=== PATIENT | female | born 1955 | race Caucasian/White ===

== ENCOUNTER 2016-06-30 19:59 | Emergency (ER) | payer OTHER ==
[2016-06-30 20:11] VITALS: BP 163/94; PULSE 80; TEMP 98.3; BMI 27.2
--- NOTE | 2016-06-30 20:20 | PDOC ---
History of Present Illness - General History Source: Patient, Old Records Exam Limitations: No Limitations - History of Present Illness Initial Comments: 06/30/16 20:50 The patient is a 60 year old female, with a significant past medical history of hypertension, who presents to the emergency department with abrasions to the left wrist and abrasions to the left elbow s/p a mechanical trip and fall 3 days ago. The patient states that she landed on her left side, sustaining abrasions to the left wrist and left elbow when she fell. She states that she did not hit her head, denies any LOC. She reports that she washed and cleaned the abrasions, applied bacitracin and covered the abrasions with band aids. The patient presents to the ED today out of concern that the abrasions are becoming infected. The patient denies fever or chills. The patient denies any extremity weakness/numbness/tingling. PAST MEDICAL HISTORY: See HPI. PAST SURGICAL HISTORY: No significant history. FAMILY HISTORY: No pertinent history. SOCIAL HISTORY: Patient lives with family and is employed. MEDICATIONS: Reviewed. ALLERGIES: As per nursing notes. Adult ROS: General: No fevers or chills, no weakness, no weight loss. HEENT: No change in vision. No sore throat. No ear pain. CardioVascular: No chest pain or shortness of breath. Respiratory: No cough, or wheezing. Gastrointestinal: No nausea, vomiting, diarrhea or constipation, no rectal bleeding. Genitourinary: No dysuria, hematuria, or frequency. Musculoskeletal: No joint or muscle pain or swelling. No neck pain or back pain. Neurologic: No headache, vertigo, dizziness or loss of consciousness. Psychiatric: No depression. Skin: +Abrasions to the left wrist, abrasions to the left elbow. No rashes or easy bruising. Endocrine: No increased thirst or abnormal weight change. Allergic: No skin or latex allergy. All other systems reviewed and normal. Basic Physical Exam: GENERAL: The patient is awake, alert, and fully oriented, in no acute distress. HEAD: Normal with no signs of trauma. EYES: Pupils equal, round and reactive to light, extraocular movements intact, sclera anicteric, conjunctiva clear. EXTREMITIES: There is an abrasion over the left elbow with mild erythema and swelling. No pus or purulent discharge from the abrasion. There is tenderness to palpation of the soft tissue without no bony tenderness. There is some mild edema distally but no erythema or tenderness. Dorsum of the right hand, there is some mild ecchymosis which appears to be approximately 2 days old. There is no bony tenderness. Normal range of motion. NEUROLOGICAL: Normal speech, normal gait. PSYCH: Normal mood, normal affect. SKIN: Warm, dry, normal turgor, no rashes or lesions noted. 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 In addition to that she also injured her left elbow. Patient comes in for reevaluation of a probable infection of her left elbow. 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 Patient had no complaints of body aches, fatigue or fevers or systemic symptoms of an infection. A portion of this note was documented by scribe services under my direction. I have reviewed the details of the note, within reason, and agree with the documentation. The case summary and management plan written by me. <Shalonda Finley I - Last Filed: 06/30/16 21:53> - General Chief Complaint: Injury Stated Complaint: FELL INJURY TO LEFT WRIST/ELBOW Time Seen by Provider: 06/30/16 20:19 Past History <Verna Guerrero - Last Filed: 06/30/16 20:49> - Past Medical History HTN: Yes Other medical history: IBS - Immunization History Immunization Up to Date: Yes - Psycho/Social/Smoking Cessation Hx Anxiety: No Suicidal Ideation: No Smoking Status: Yes Smoking History: Current every day smoker Have you smoked in the past 12 months: Yes Number of Cigarettes Smoked Daily: 10 Cigars Per Day: 0 Information on smoking cessation initiated: Yes 'Breaking Loose' booklet given: 02/14/14 Hx Alcohol Use: Yes (SOCIAL) Drug/Substance Use Hx: No Substance Use Type: None <Shalonda Finley I - Last Filed: 06/30/16 21:53> - Past Medical History Allergies/Adverse Reactions: Allergies Allergy/AdvReac Type Severity Reaction Status Date / Time Penicillins Allergy Verified 06/30/15 14:00 Home Medications: Ambulatory Orders Linaclotide [Linzess] 290 mcg PO DAILY 06/30/16 Sulfamethoxazole/Trimethoprim [Bactrim DS -] 1 tab PO BID #14 tablet 06/30/16 *Physical Exam - Vital Signs Last Vital Signs Temp Pulse Resp BP Pulse Ox 98.3 F 80 16 163/94 100 06/30/16 20:00 06/30/16 20:00 06/30/16 20:00 06/30/16 20:00 06/30/16 20:00 <Verna Guerrero - Last Filed: 06/30/16 20:49> - Vital Signs Last Vital Signs Temp Pulse Resp BP Pulse Ox 98.3 F 80 16 163/94 100 06/30/16 20:00 06/30/16 20:00 06/30/16 20:00 06/30/16 20:00 06/30/16 20:00 <Shalonda Finley I - Last Filed: 06/30/16 21:53> *DC/Admit/Observation/Transfer - Attestations Scribe Attestion: 06/30/16 20:23 Documentation prepared by Verna Guerrero, acting as nurses medical assistants phlebotomists for Shalonda Finley MD. <Verna Guerrero - Last Filed: 06/30/16 20:49> <Shalonda Finley I - Last Filed: 06/30/16 21:53> Diagnosis at time of Disposition: Cellulitis of left elbow Abrasion of left elbow Qualifiers: Encounter type: initial encounter Qualified Code(s): S50.312A - Abrasion of left elbow, initial encounter - Discharge Dispostion Disposition: HOME Condition at time of disposition: Stable - Prescriptions Prescriptions: Sulfamethoxazole/Trimethoprim [Bactrim DS -] 1 tab PO BID #14 tablet - Referrals Referrals: Ezequiel Escudero MD [Primary Care Provider] - - Patient Instructions Additional Instructions: For the infection take Bactrim one tablet twice a day for 7 days/ Apply some bacitracin to the elbow and a Band-Aid for the next 2-3 days/ Return to the emergency department immediately with ANY new, persistent or worsening symptoms. Continue any medications as previously prescribed by your physician. You should follow up with your primary doctor as soon as possible regarding today's emergency department visit. . Please make sure your doctor reviews the results of your emergency evaluation. Thank you for coming to the Emergency Department today for your care. It was a pleasure to see you today. Please note that your evaluation is INCOMPLETE until you follow-up with your doctor.
[2016-06-30] MEDS ORDERED: SULFAMETHOXAZOLE/TRIMETHOPRIM 800MG/160MG D.S. TABLET ONE (20:38)
[2016-06-30] MEDS ORDERED: SULFAMETHOXAZOLE/TRIMETHOPRIM 800MG/160MG D.S. TABLET PO ONE (20:41)
[2016-06-30] MEDS ORDERED: DIPHTH,PERTUSS(ACELL),TET 0.5 ML DISP.SYRIN IM ONE (20:42)
== END 2016-06-30 20:46 | disposition home or self-care (01) ==
LOC: FER 19:59
PROC: 3E0234Z Introduction of Serum, Toxoid and Vaccine into Muscle, Percutaneous Approach (ICD-10-PCS; principal; 2016-06-30)
DX: L03.114 Cellulitis of left upper limb (principal); S50.312A Abrasion of left elbow, initial encounter; W18.30XA Fall on same level, unspecified, initial encounter; Y93.9 Activity, unspecified; Y92.9 Unspecified place or not applicable
CPT/HCPCS: 90715; 99281-25

== ENCOUNTER 2016-08-10 10:04 | Emergency (ER) | payer OTHER ==
[2016-08-10 10:14] VITALS: BP 123/69; PULSE 73; TEMP 99.6; BMI 27.1
--- NOTE | 2016-08-10 11:07 | PDOC ---
History of Present Illness - General Chief Complaint: Respiratory Stated Complaint: HEADACHE, SORE THROAT, NASAL CONGESTION, COUGH Time Seen by Provider: 08/10/16 10:54 - History of Present Illness Initial Comments: 08/10/16 11:05 60-year-old female, states that since Thursday she has had headache, sinus pressure, chills, nonproductive cough, low-grade ear, aches, and feeling very tired, associated with a sore throat but no earache She states that she did have the flu shot this year She states that she sometimes gets bad sinus infections, and it feels like she has a sinus infection starting She denies any nausea vomiting or diarrhea She denies any other complaints at this time, and the remainder of the review of systems is negative Past History - Past Medical History Allergies/Adverse Reactions: Allergies Allergy/AdvReac Type Severity Reaction Status Date / Time Penicillins Allergy Verified 08/10/16 10:08 Home Medications: Ambulatory Orders Linaclotide [Linzess] 290 mcg PO DAILY 06/30/16 Amox-Tr/K Cl [Augmentin - 500Mg Tablet] 1 tab PO TID #21 tab 08/10/16 GI Disorders: Yes (IBS W/ CONSTIPATION) HTN: Yes - Immunization History Immunization Up to Date: Yes - Psycho/Social/Smoking Cessation Hx Anxiety: No Suicidal Ideation: No Smoking Status: Yes Smoking History: Unknown if ever smoked Have you smoked in the past 12 months: Yes Number of Cigarettes Smoked Daily: 10 Cigars Per Day: 0 'Breaking Loose' booklet given: 02/14/14 Hx Alcohol Use: Yes (SOCIAL) Drug/Substance Use Hx: No Substance Use Type: None *Physical Exam - Vital Signs Last Vital Signs Temp Pulse Resp BP Pulse Ox 99.6 F 73 18 123/69 96 08/10/16 10:05 08/10/16 10:05 08/10/16 10:05 08/10/16 10:05 08/10/16 10:05 - Physical Exam Comments: 08/10/16 11:06 Physical exam Last Vital Signs Temp Pulse Resp BP Pulse Ox 99.6 F 73 18 123/69 96 08/10/16 10:05 08/10/16 10:05 08/10/16 10:05 08/10/16 10:05 08/10/16 10:05 GENERAL: The patient is awake, alert, and fully oriented, and in no apparent distress. HEAD: Normal with no signs of trauma. EYES: sclera anicteric, conjunctiva are normal. ENT: TMs normal, nares patent, oropharynx is erythematous without exudates Moist mucous membranes. There is diffuse sinus tenderness to palpation NECK: Normal range of motion, supple without lymphadenopathy, JVD, or masses. LUNGS: Breath sounds equal, clear to auscultation bilaterally. No wheezes, and no crackles. HEART: Regular rate and rhythm, normal S1 and S2 without murmur, rub or gallop. ABDOMEN: Soft, nontender, normoactive bowel sounds. No guarding, no rebound. No masses appreciated. NEUROLOGICAL: Cranial nerves II through XII grossly intact. Normal speech, normal gait. Grossly nonfocal neurologic exam PSYCH: Normal mood, normal affect. SKIN: Warm, Dry, Medical Decision Making - Medical Decision Making 08/10/16 11:07 URI with sinusitis Will check rapid strep and flu swab Patient states that Augmentin usually works well when she gets sinusitis 08/10/16 11:52 Will treat with Augmentin for sinusitis Rapid strep negative 08/10/16 11:57 Patient states that she was told as a child 60 years ago that she might of been ALLERGIC to penicillin, but states she has taken Augmentin without any difficulties in the past for sinusitis *DC/Admit/Observation/Transfer Diagnosis at time of Disposition: Acute sinusitis, Upper respiratory infection - Discharge Dispostion Disposition: HOME Condition at time of disposition: Stable - Patient Instructions Printed Discharge Instructions: DI for Sinusitis, Sinusitis, DI for Viral Upper Respiratory Infection -- Adult Additional Instructions: Augmentin-one pill 3 times a day Any [id number] cough or cold preparations that you prefer Increase fluid intake Please take a probiotic daily when you're taking this antibiotic Followup with your primary care physician in 24-48 hours Return immediately if you worsen in any way Take your medications as directed - Post Discharge Activity Work/School Note: Back to Work
[2016-08-10] MEDS ORDERED: AMOX TR/POT CLAV 500MG/125MG TABLETS (FP) PO ONE (11:57)
[2016-08-10] MEDS ORDERED: AMOX TR/POT CLAV 500MG/125MG TABLETS (FP) ONE (12:05)
== END 2016-08-10 12:10 | disposition home or self-care (01) ==
LOC: FER 10:04
DX: J01.90 Acute sinusitis, unspecified (principal); J06.9 Acute upper respiratory infection, unspecified; I10 Essential (primary) hypertension; K58.1 Irritable bowel syndrome with constipation
CPT/HCPCS: 87070; 87430; 87804; 99283-25

== ENCOUNTER 2016-11-07 07:16 | Emergency (ER) | payer OTHER ==
--- NOTE | 2016-11-07 07:31 | PDOC ---
History of Present Illness - General Chief Complaint: Cold Symptoms Stated Complaint: cough Time Seen by Provider: 11/07/16 07:29 - History of Present Illness Initial Comments: 11/07/16 07:31 60yo F hx smoking presents with 3 days of productive cough, subjective fevers and chills, runny nose and frontal headache. Pt reports she initially had a sore throat that resolved yesterday. She then began to experience periods of feeling hot and then cold as well as a gradual onset throbbing headache in her forehead. She relates this headache to the last time she was diagnosed with sinusitus. She was sent home from work yesterday and states since then, she slept 23 hours yesterday which is very unlike her. Reports 6 co-workers who are sick with similar symptoms. She tried mucinex for the cough which helped. Denies ear pain, stiff neck, CP, SOB, abd pain, N/V/D, LE edema, dysuria, rashes. Past History - Travel Traveled outside of the country in the last 30 days: No Close contact w/someone who was outside of country & ill: No - Past Medical History Allergies/Adverse Reactions: Allergies Allergy/AdvReac Type Severity Reaction Status Date / Time Penicillins Allergy Verified 08/10/16 10:08 Home Medications: Ambulatory Orders Linaclotide [Linzess] 290 mcg PO DAILY 06/30/16 Amox-Tr/K Cl [Augmentin - 500Mg Tablet] 1 tab PO TID #21 tab 08/10/16 Azithromycin 500 mg PO DAILY #2 tablet 11/07/16 GI Disorders: Yes (IBS W/ CONSTIPATION) HTN: Yes - Immunization History Immunization Up to Date: Yes - Psycho/Social/Smoking Cessation Hx Anxiety: No Suicidal Ideation: No Smoking Status: Yes Smoking History: Current every day smoker Have you smoked in the past 12 months: Yes Number of Cigarettes Smoked Daily: 10 Cigars Per Day: 0 'Breaking Loose' booklet given: 02/14/14 Hx Alcohol Use: Yes (SOCIAL) Drug/Substance Use Hx: No Substance Use Type: None Review of Systems - Review of Systems Able to Perform ROS?: Yes Is the patient limited Slovak proficient: No Constitutional: Yes: Chills, Fever. No: Symptoms Reported, See HPI, Diaphoresis , Loss of Appetite, Malaise, Night Sweats, Weakness, Weight Stable, Unintentional Wgt. Loss, Unexplained wgt Loss, Other HEENTM: Yes: Nose Congestion, Throat Pain. No: Symptoms Reported, See HPI, Eye Pain, Blurred Vision, Tearing, Recent change in vision, Double Vision, Cataracts , Ear Pain, Ocular Prothesis, Ear Discharge, Nose Pain, Tinnitus, Nose Bleeding , Hearing Loss, Throat Swelling, Mouth Pain, Dental Problems, Difficulty Swallowing, Mouth Swelling, Other Respiratory: Yes: Cough, Productive cough. No: Symptoms reported, See HPI, Orthopnea, Shortness of Breath, SOB with Exertion, SOB at Rest, Stridor, Wheezing, Hemoptysis, Other Cardiac (ROS): No: Symptoms Reported, See HPI, Chest Pain, Edema, Irregular Heart Rate, Lightheadedness, Palpitations, Syncope, Chest Tightness, Other ABD/GI: No: Symptoms Reported, See HPI, Abdominal Distended, Abd. Pain w/ defecation, Blood Streaked Bowels, Constipated, Diarrhea, Difficulty Swallowing , Nausea, Poor Appetite, Poor Fluid Intake, Rectal Bleeding, Vomiting, Indigestion, Abdominal cramping, Tarry Stools, Other : No: Symptoms Reported, See HPI, Burning, Dysuria, Discharge, Frequency, Flank Pain, Hematuria, Incontinence, Pain, Urgency, Testicular Mass, Testicular Swelling, Lesions, Testicular Pain, Other Musculoskeletal: No: Symptoms Reported, See HPI, Back Pain, Gout, Joint Pain, Joint Swelling, Muscle Pain, Muscle Weakness, Neck Pain, Joint Stiffness, Other Integumentary: No: Symptoms Reported, See HPI, Bruising, Change in Color, Change in Hair/Nails, Dryness, Erythema, Flushing, Lesions, Lumps, Pallor, Pruritus, Rash, Sweating, Other Neurological: No: Symptoms reported, See HPI, Headache, Numbness, Paresthesia, Pre-Existing Deficit, Seizure, Tingling, Tremors, Weakness, Unsteady Gait, Ataxia, Dizziness, Other Psychiatric: No: Anxiety, Depression, Frequent Crying, Stressors, Sleep Pattern Change, Emotional Problems, Mood Swings, Change in Appetite, Other Endocrine: No: Symptoms Reported, See HPI, Excessive Sweating, Flushing, Intolerance to Cold, Intolerance to Heat, Increased Hunger, Increased Thirst, Increased Urine, Unexplained Weight Gain, Unexplained Weight Loss, Change in Weight, Other Hematologic/Lymphatic: No: Symptoms Reported, See HPI, Anemia, Blood Clots, Easy Bleeding, Easy Bruising, Bleeding Diathesis, Lymph Node Abnormalities, Swollen Glands, Other *Physical Exam - Physical Exam Comments: 11/07/16 07:50 GENERAL: Awake, alert, and fully oriented, in no acute distress HEAD: No signs of trauma, +ttp to frontal and maxillary sinuses EYES: PERRLA, EOMI, sclera anicteric, conjunctiva clear ENT: Auricles normal inspection, hearing grossly normal, nares patent, oropharynx with mild erythema but no exudates. Moist mucosa NECK: Normal ROM, supple, no lymphadenopathy, JVD, or masses LUNGS: Breath sounds equal, clear to auscultation bilaterally. No wheezes, fine crackles at lung base HEART: Regular rate and rhythm, normal S1 and S2, no murmurs, rubs or gallops ABDOMEN: Soft, nontender, normoactive bowel sounds. No guarding, no rebound. No masses EXTREMITIES: Normal range of motion, no edema. No clubbing or cyanosis. No cords, erythema, or tenderness NEUROLOGICAL: Normal speech, cranial nerves intact, negative pronator drift, 5/ 5 strength in all 4 extremities, normal sensation to light touch in all 4 extremities, normal cerebellar exam, normal gait, normal reflexes and tone SKIN: Warm, Dry, normal turgor, no rashes or lesions noted. ED Treatment Course - LABORATORY CBC & Chemistry Diagram: 11/07/16 07:58 11/07/16 07:58 Medical Decision Making - Medical Decision Making 11/07/16 07:52 60-year-old female with a history of smoking who presents with productive cough , fevers, chills, runny nose, and frontal headache. Exam with tenderness to palpation over the frontal and maxillary sinuses as well as fine crackles auscultated at the right lung base. Likely viral syndrome with sinusitis given crackles auscultated on exam will check a chest x-ray to rule out pneumonia. -cbc, cmp -CXR -NS bolus -tylenol -azithromycin -reassess 11/07/16 08:27 Chest x-ray is negative with no acute pathology and no pneumonia. Labs are still pending. 11/07/16 08:43 CBC unremarkable with no white count. CMP pending. If within normal limits will discharge patient to follow-up with primary doctor within 2-3 days. 11/07/16 09:11 CMP unremarkable. Patient feels better after Tylenol and fluids. Will follow up with her primary care doctor within 2-3 days. Patient provided a work note so that she can stay home and get some rest. I discussed the physical exam findings, ancillary test results and final diagnoses with the patient. I answered all of the patient's questions. The patient was satisfied with the care received and felt comfortable with the discharge plan and treatment plan. The patient will call their primary care physician within 24 hours to arrange follow-up and will return to the Emergency Department with any new, persistent or worsening symptoms. *DC/Admit/Observation/Transfer Diagnosis at time of Disposition: Acute sinusitis Qualifiers: Sinusitis location: unspecified location Recurrence: not specified as recurrent Qualified Code(s): J01.90 - Acute sinusitis, unspecified - Discharge Dispostion Disposition: HOME Condition at time of disposition: Stable Admit: No - Prescriptions Prescriptions: Azithromycin 500 mg PO DAILY #2 tablet - Patient Instructions Printed Discharge Instructions: DI for Viral Upper Respiratory Infection -- Adult Additional Instructions: Follow-up with your primary care doctor within 2-3 days. Return to the emergency department immediately for any new or concerning symptoms or if your symptoms get worse - Post Discharge Activity Work/School Note: Back to Work - Attestations Physician Attestion: 11/07/16 08:41 I, Dr. Barrington Murillo MD, attest that this document has been prepared under my direction and personally reviewed by me in its entirety. I further attest, that it accurately reflects all work, treatment, procedures and medical decision -making performed by me.
[2016-11-07] MEDS ORDERED: SODIUM CHLORIDE 0.9% 500 ML INFUS.BAG IV ONE (07:36)
[2016-11-07] MEDS ORDERED: ACETAMINOPHEN 500 MG TABLET (FP) PO ONE (07:36)
[2016-11-07] MEDS ORDERED: AZITHROMYCIN 250 MG TABLET PO ONE (07:37)
[2016-11-07 07:39] VITALS: BP 113/88; PULSE 93; TEMP 98.3; BMI 27.8
[2016-11-07] MEDS ORDERED: AZITHROMYCIN 250 MG TABLET ONE (07:40)
[2016-11-07] MEDS ORDERED: ACETAMINOPHEN 500 MG TABLET (FP) ONE (07:40)
[2016-11-07 08:26] LABS: BASOPHIL 0.8 % (0-2.0); EOSINOPHIL 0.8 % (0-4.5); MCHC 33.5 g/dl (32.0-36.0); MEAN CELL VOLUME 92.6 fl (80-96); MEAN PLT VOLUME 7.6 fl (7.5-11.1); NEUTROPHILS 70.8 % (42.8-82.8); PLATELET COUNT 335 K/MM3 (134-434); RDW 13.6 % (11.6-15.6); WHITE BLOOD COUNT 8.8 K/mm3 (4.0-10.8)
[2016-11-07 08:43] LABS: ALBUMIN 4.1 g/dl (3.5-5.0); ALK PHOS 63 U/L (32-92); ANION GAP 7 (8-16); BILIRUBIN,TOTAL 0.7 mg/dl (0.2-1.0); CALCIUM 9.3 mg/dl (8.4-10.2); CO2 27 mmol/L (22-28); CREATININE 0.7 mg/dl (0.6-1.3); GLUCOSE,RANDOM 111 mg/dl (74-106); SGOT/AST 18 U/L (10-42); SGPT/ALT 16 U/L (10-40); TOT PROT 7.3 g/dl (6.4-8.3)
== END 2016-11-07 09:18 | disposition home or self-care (01) ==
LOC: FER 07:16
PROC: 3E0337Z Introduction of Electrolytic and Water Balance Substance into Peripheral Vein, Percutaneous Approach (ICD-10-PCS; principal; 2016-11-07)
DX: J01.90 Acute sinusitis, unspecified (principal)
CPT/HCPCS: 36415; 71020-TC; 80053; 85025; 99282-25

== ENCOUNTER 2016-12-17 15:23 | Emergency (ER) | payer OTHER ==
[2016-12-17 15:44] VITALS: BP 151/89; PULSE 71; TEMP 98.6; BMI 28.3
--- NOTE | 2016-12-17 15:55 | PDOC ---
History of Present Illness - General History Source: Patient Exam Limitations: No Limitations - History of Present Illness Initial Comments: 12/17/16 16:00 The patient is a 61 year old female, with no significant past medical history, who presents to the emergency department s/p fall. Patient was walking in the parking lot when she fell left arm first. She complains of left forearm swelling and pain. She states she had a prior fall where she fell on her left forearm and suffered an abrasion and infection, but no fracture. Patient is right hand dominant. Patient denies head trauma, back pain, neck pain. Patient denies headache, fever, chills, nausea, vomiting, diarrhea. Patient is up to date with her tetanus shot. <Herb Torre - Last Filed: 12/17/16 16:00> <Giorgi Das - Last Filed: 12/17/16 16:52> - General Chief Complaint: Pain, Acute Stated Complaint: left arm pain Time Seen by Provider: 12/17/16 15:44 Past History <Herb Torre - Last Filed: 12/17/16 16:00> - Past Medical History GI Disorders: Yes (IBS W/ CONSTIPATION) HTN: Yes - Immunization History Immunization Up to Date: Yes - Suicide/Smoking/Psychosocial Hx Smoking Status: Yes Smoking History: Current every day smoker Have you smoked in the past 12 months: Yes Number of Cigarettes Smoked Daily: 10 Cigars Per Day: 0 Information on smoking cessation initiated: Yes 'Breaking Loose' booklet given: 12/17/16 Hx Alcohol Use: No Drug/Substance Use Hx: No Substance Use Type: None <Giorgi Das - Last Filed: 12/17/16 16:52> - Past Medical History Allergies/Adverse Reactions: Allergies Allergy/AdvReac Type Severity Reaction Status Date / Time Penicillins Allergy Verified 12/17/16 15:23 Home Medications: Ambulatory Orders Linaclotide [Linzess] 290 mcg PO DAILY 06/30/16 Review of Systems - Review of Systems Able to Perform ROS?: Yes Comments:: 12/17/16 16:00 GENERAL/CONSTITUTIONAL: No fever or chills. No weakness. HEAD, EYES, EARS, NOSE AND THROAT: No change in vision. No ear pain or discharge. No sore throat. CARDIOVASCULAR: No chest pain or shortness of breath. RESPIRATORY: No cough, wheezing, or hemoptysis. GASTROINTESTINAL: No nausea, vomiting, diarrhea or constipation. GENITOURINARY: No dysuria, frequency, or change in urination. MUSCULOSKELETAL: + left forearm pain and swelling. No neck or back pain. SKIN: No rash NEUROLOGIC: No headache, vertigo, loss of consciousness, or change in strength/ sensation. ENDOCRINE: No increased thirst. No abnormal weight change. HEMATOLOGIC/LYMPHATIC: No anemia, easy bleeding, or history of blood clots. ALLERGIC/IMMUNOLOGIC: No hives or skin allergy. <Herb Torre - Last Filed: 12/17/16 16:00> *Physical Exam - Vital Signs Last Vital Signs Temp Pulse Resp BP Pulse Ox 98.6 F 71 16 151/89 100 12/17/16 15:23 12/17/16 15:23 12/17/16 15:23 12/17/16 15:23 12/17/16 15:23 - Physical Exam Comments: 12/17/16 16:00 GENERAL: Awake, alert, and fully oriented, in no acute distress HEAD: No signs of trauma EYES: PERRLA, EOMI, sclera anicteric, conjunctiva clear ENT: Auricles normal inspection, hearing grossly normal, nares patent, oropharynx clear without exudates. Moist mucosa NECK: Normal ROM, supple, no lymphadenopathy, JVD, or masses LUNGS: Breath sounds equal, clear to auscultation bilaterally. No wheezes, and no crackles HEART: Regular rate and rhythm, normal S1 and S2, no murmurs, rubs or gallops ABDOMEN: Soft, nontender, normoactive bowel sounds. No guarding, no rebound. No masses EXTREMITIES: Left wrist: no deformity. Mild diffuse swelling. Point tenderness over the distal radius. No snuff box tenderness. Pulses full. No distal sensory deficits .Good capillary refill in all 5 digits. Left elbow: diffuse swelling. Small effusion. Point tenderness over the radial head. Limited ROM with a lack of approximately 15 degrees of extension. No visible or palpable deformity other than the swelling. Full ROM of the shoulder without pain. No other injuries including to the head neck chest abdomen elbow spine or other extremities. NEUROLOGICAL: Cranial nerves II through XII grossly intact. Normal speech, normal gait SKIN: Warm, Dry, normal turgor, no rashes or lesions noted. <Herb Torre - Last Filed: 12/17/16 16:00> - Vital Signs Last Vital Signs Temp Pulse Resp BP Pulse Ox 98.6 F 71 16 151/89 100 12/17/16 15:23 12/17/16 15:23 12/17/16 15:23 12/17/16 15:23 12/17/16 15:23 <Giorgi Das - Last Filed: 12/17/16 16:52> *DC/Admit/Observation/Transfer - Attestations Scribe Attestion: 12/17/16 16:00 Documentation prepared by Herb Torre, acting as medical equipment sales for Giorgi Delaney MD. <Herb Torre - Last Filed: 12/17/16 16:00> - Discharge Dispostion Admit: No <Giorgi Das - Last Filed: 12/17/16 16:52> Diagnosis at time of Disposition: Fracture of head of radius Qualifiers: Encounter type: initial encounter Fracture type: closed Fracture alignment: nondisplaced Laterality: left Qualified Code(s): S52.125A - Nondisplaced fracture of head of left radius, initial encounter for closed fracture; S52.125A - Nondisplaced fracture of head of left radius, initial encounter for closed fracture - Discharge Dispostion Disposition: HOME Condition at time of disposition: Improved - Referrals Referrals: River Vanegas MD [Staff Physician] - 1 week - Patient Instructions Printed Discharge Instructions: DI for Elbow Fracture Additional Instructions: Although your x-ray does not show a definite break in the bone, there are other signs that you have a minor fracture of the radial head at your elbow. Use the sling for comfort. Ice and ibuprofen or Aleve. As the pain improves, gentle range of motion, bending and extending, to the point where pain begins. See orthopedist for follow-up as directed and consider physical therapy to avoid stiffness and maintain full function. - Post Discharge Activity Forms/Work/School Notes: Back to Work
[2016-12-17] MEDS ORDERED: IBUPROFEN 600 MG TABLET (FP) PO ONE (15:56)
== END 2016-12-17 16:55 | disposition home or self-care (01) ==
LOC: FER 15:23
DX: S52.125A Nondisplaced fracture of head of left radius, initial encounter for closed fracture (principal); F17.210 Nicotine dependence, cigarettes, uncomplicated; K58.9 Irritable bowel syndrome, unspecified; W18.39XA Other fall on same level, initial encounter; Y93.89 Activity, other specified; Y92.481 Parking lot as the place of occurrence of the external cause
CPT/HCPCS: 73070-TC-LT; 73110-TC-LT; 99282-25

== ENCOUNTER 2017-03-07 11:00 | Emergency (ER) | payer OTHER ==
[2017-03-07 11:14] VITALS: BP 135/73; PULSE 68; TEMP 97.6; BMI 28.1
[2017-03-07] MEDS ORDERED: AZITHROMYCIN 500 MG TABLET PO ONE (11:33)
[2017-03-07] MEDS ORDERED: AZITHROMYCIN 250 MG TABLET ONE (11:40)
--- NOTE | 2017-03-07 11:40 | PDOC ---
History of Present Illness - General Chief Complaint: Respiratory Stated Complaint: COUGH Time Seen by Provider: 03/07/17 11:05 History Source: Patient Exam Limitations: No Limitations - History of Present Illness Initial Comments: 03/07/17 11:40 61 year old female with PMH of HTN, IBS, smoking history presents with coughing x 2 weeks. Patient has been coughing and wheezing and some occasional chest tightness. Saw Dr. Escudero who prescribed albuterol and medrol pack. however, pt reports that her symptoms are still persistent. Denies fevers, chills. Pt is nearly done completing her steroids. Has not initiated antibiotics. Past History - Past Medical History Allergies/Adverse Reactions: Allergies Allergy/AdvReac Type Severity Reaction Status Date / Time Penicillins Allergy Verified 03/07/17 11:01 Home Medications: Ambulatory Orders Linaclotide [Linzess] 290 mcg PO DAILY 06/30/16 Azithromycin 250 mg PO DAILY #4 tablet 03/07/17 Prednisone 10 mg PO ASDIR 03/07/17 Varenicline Tartrate [Chantix] 0.5 mg PO DAILY #30 tab 03/07/17 COPD: No GI Disorders: Yes (IBS W/ CONSTIPATION) HTN: Yes - Immunization History Immunization Up to Date: Yes - Suicide/Smoking/Psychosocial Hx Smoking Status: Yes Smoking History: Current every day smoker Have you smoked in the past 12 months: Yes Number of Cigarettes Smoked Daily: 6 Cigars Per Day: 0 Information on smoking cessation initiated: Yes 'Breaking Loose' booklet given: 03/07/17 Hx Alcohol Use: No Drug/Substance Use Hx: No Substance Use Type: None Review of Systems - Review of Systems Able to Perform ROS?: Yes Comments:: 03/07/17 11:46 GENERAL/CONSTITUTIONAL: No fever, weakness. HEAD, EYES, EARS, NOSE AND THROAT: No change in vision. No ear pain or discharge. No sore throat. CARDIOVASCULAR: No chest pain or shortness of breath. RESPIRATORY: +Occasional cough. No wheezing, or hemoptysis. GASTROINTESTINAL: No abdominal pain, nausea, vomiting, diarrhea, or decreased PO intolerance. GENITOURINARY: No dysuria, frequency, or change in urination. MUSCULOSKELETAL: No joint or muscle swelling or pain. No neck or back pain. SKIN: No rash NEUROLOGIC: No headache, vertigo, loss of consciousness, or change in strength/ sensation. ENDOCRINE: No increased thirst. No abnormal weight change. HEMATOLOGIC/LYMPHATIC: No anemia, easy bleeding, or history of blood clots. ALLERGIC/IMMUNOLOGIC: No hives or skin allergy. *Physical Exam - Vital Signs Last Vital Signs Temp Pulse Resp BP Pulse Ox 97.6 F 68 18 135/73 98 03/07/17 11:00 03/07/17 11:00 03/07/17 11:00 03/07/17 11:00 03/07/17 11:00 - Physical Exam Comments: 03/07/17 11:46 GENERAL: Awake, alert, and fully oriented, in no acute distress. HEAD: No signs of trauma EYES: PERRLA, EOMI, sclera anicteric, conjunctiva clear ENT: Auricles normal inspection, hearing grossly normal, nares patent NECK: Normal ROM, supple, no lymphadenopathy, JVD, or masses LUNGS: Breath sounds equal, clear to auscultation bilaterally. Occasional scant wheezing right mid back. HEART: Regular rate and rhythm, normal S1 and S2, no murmurs, rubs or gallops EXTREMITIES: Normal range of motion, no edema. No clubbing or cyanosis. No cords, erythema, or tenderness NEUROLOGICAL: Cranial nerves II through XII grossly intact. Normal speech, normal gait SKIN: Warm, Dry, normal turgor, no rashes or lesions noted. ED Treatment Course - RADIOLOGY Radiology Studies Ordered: Category Date Time Status CHEST PA & LAT [RAD] Stat Radiology 03/07/17 11:05 Taken Medical Decision Making - Medical Decision Making 03/07/17 11:46 Vital Signs Temp Pulse Resp BP Pulse Ox 97.6 F 68 18 135/73 98 03/07/17 11:00 03/07/17 11:00 03/07/17 11:00 03/07/17 11:00 03/07/17 11:00 Chest xray reviewed by me, pending official radiology read. No acute changes from prior chest xray. However, given persistence of symptoms and productive greenish cough, will treat as acute bronchitis. Prescription ordered for azithromycin. Pt has an appointment with Dr. Escudero March 10 I discussed the physical exam findings, ancillary test results and final diagnoses with the patient. I answered all of the patient's questions. The patient was satisfied with the care received and felt comfortable with the discharge plan and treatment plan. The patient will call their primary care physician within 24 hours to arrange follow-up and will return to the Emergency Department with any new, persistant or worsening symptoms. *DC/Admit/Observation/Transfer Diagnosis at time of Disposition: Bronchitis - Discharge Dispostion Disposition: HOME Condition at time of disposition: Stable Admit: No - Prescriptions Prescriptions: Azithromycin 250 mg PO DAILY #4 tablet Varenicline Tartrate [Chantix] 0.5 mg PO DAILY #30 tab - Referrals - Patient Instructions Printed Discharge Instructions: DI for Acute Bronchitis Additional Instructions: Please take your azithromycin until completion. Follow up with Dr. Escudero - Post Discharge Activity
== END 2017-03-07 11:45 | disposition home or self-care (01) ==
LOC: FER 11:00
DX: J40 Bronchitis, not specified as acute or chronic (principal)
CPT/HCPCS: 71020-TC; 99283-25

== ENCOUNTER 2017-05-25 09:30 | Emergency (ER) | payer OTHER, BC ==
--- NOTE | 2017-05-25 09:43 | PDOC ---
History of Present Illness - General Chief Complaint: Cold Symptoms Stated Complaint: NAUSEA,FLU LIKE SYMPTOMS Time Seen by Provider: 05/25/17 09:31 History Source: Patient Exam Limitations: No Limitations - History of Present Illness Initial Comments: 05/25/17 09:34 61 year old female with PMH of HTN, IBS, smoking history presents with coughing , generalized weakness, headaches, nausea Pt states that her symptoms began 3 days ago She has been taking motrin, thinks she may have had a fever 3 days ago No abdominal pain, (+) nausea, no vomiting, no diarrhea No chest pain, palpitations (+) generalized weakness, frontal headache Pt states she typically is very energetic, has been taking naps Has no recent travel (+) ill contacts PMH: IBS, HTN PSH: Meds: Linzess, Chantix ALL: PCN --> Review of Systems GENERAL/CONSTITUTIONAL: No fever, weakness. HEAD, EYES, EARS, NOSE AND THROAT: No change in vision. No ear pain or discharge. No sore throat. CARDIOVASCULAR: No chest pain or shortness of breath. RESPIRATORY: +Occasional cough. No wheezing, or hemoptysis. GASTROINTESTINAL: No abdominal pain, nausea, vomiting, diarrhea, or decreased PO intolerance. GENITOURINARY: No dysuria, frequency, or change in urination. MUSCULOSKELETAL: No joint or muscle swelling or pain. No neck or back pain. SKIN: No rash NEUROLOGIC: No headache, vertigo, loss of consciousness, or change in strength/ sensation. ENDOCRINE: No increased thirst. No abnormal weight change. HEMATOLOGIC/LYMPHATIC: No anemia, easy bleeding, or history of blood clots. ALLERGIC/IMMUNOLOGIC: No hives or skin allergy. Physical Exam GENERAL: Awake, alert, and fully oriented, in no acute distress. HEAD: No signs of trauma EYES: PERRLA, EOMI, sclera anicteric, conjunctiva clear ENT: Auricles normal inspection, hearing grossly normal, nares patent NECK: Normal ROM, supple, no nuchal rigidity, no lymphadenopathy LUNGS: Breath sounds equal, clear to auscultation bilaterally. Occasional scant wheezing right mid back. HEART: Regular rate and rhythm, normal S1 and S2, no murmurs, rubs or gallops EXTREMITIES: Normal range of motion, no edema. No clubbing or cyanosis. No cords, erythema, or tenderness NEUROLOGICAL: Cranial nerves II through XII grossly intact. Normal speech, normal gait SKIN: Warm, Dry, normal turgor, no rashes or lesions noted. 05/25/17 09:55 Past History - Past Medical History Allergies/Adverse Reactions: Allergies Allergy/AdvReac Type Severity Reaction Status Date / Time Penicillins Allergy Verified 05/25/17 09:31 Home Medications: Ambulatory Orders Linaclotide [Linzess] 290 mcg PO DAILY 06/30/16 Azithromycin [Zithromax 250mg Tablets -] 250 mg PO UTDICT #6 tab 05/25/17 Oseltamivir Phosphate [Tamiflu -] 75 mg PO BID #10 capsule 05/25/17 COPD: No GI Disorders: Yes (IBS W/ CONSTIPATION) HTN: Yes - Immunization History Immunization Up to Date: Yes - Suicide/Smoking/Psychosocial Hx Smoking Status: Yes Smoking History: Current every day smoker Have you smoked in the past 12 months: Yes Number of Cigarettes Smoked Daily: 6 Cigars Per Day: 0 'Breaking Loose' booklet given: 03/07/17 Hx Alcohol Use: No Drug/Substance Use Hx: No Substance Use Type: None ED Treatment Course - LABORATORY CBC & Chemistry Diagram: 05/25/17 10:34 05/25/17 10:34 Medical Decision Making - Medical Decision Making 05/25/17 09:57 Pt presents to the ER with generalized symptoms At this time would like to foregoe CXR as she recently had 2 DD: viral illness/influenza, bronchitis/pneumonia, anemia, ACS less likely Will do: Labs EKG IV hydration Motrin Re assess 05/25/17 10:10 EKG: Sinus rhythm, rate of 60 bpm, axis is normal, intervals are normal, no ST elevations or depressions, T waves upright, artifact at baseline 05/25/17 10:47 Laboratory Tests 05/25/17 10:34 WBC 8.0 Hgb 13.7 Hct 41.6 Plt Count 365 No leukocytosis 05/25/17 12:09 Laboratory Tests 05/25/17 05/25/17 10:34 10:34 Sodium 135 L Potassium 4.4 Chloride 104 Carbon Dioxide 27 BUN 11 Creatinine < 0.8 Random Glucose 104 Alkaline Phosphatase 60 Troponin I < 0.03 Pt states she feels better Will discharge to home on Azithromycin and Tamiflu Return to the ER for any other concerns or complaints Clinical Impression: viral illness, initial presentation *DC/Admit/Observation/Transfer Diagnosis at time of Disposition: Viral illness - Discharge Dispostion Disposition: HOME Condition at time of disposition: Stable Admit: No - Referrals - Patient Instructions Printed Discharge Instructions: DI for Viral Upper Respiratory Infection -- Adult Additional Instructions: Ms Nguyen Thank you for coming into the emergency Department today. Please review your blood test. Please take medications as prescribed. Please be sure to return to emergency department for any worsening symptoms. If you continue to feel weak, are unable to drink or eat, have fevers, have any other concerns or complaints, we would like to see you back in the emergency department. Please be sure to follow-up with your primary care physician at the next available appointment. - Post Discharge Activity Forms/Work/School Notes: Back to Work
[2017-05-25] MEDS ORDERED: IBUPROFEN 800 MG/8 ML IJ IVPB ONE ×2 (09:49→10:22)
[2017-05-25] MEDS ORDERED: SODIUM CHLORIDE 1,000 ML IV STA (09:49)
[2017-05-25 09:51] VITALS: BP 148/99; PULSE 74; TEMP 98.3; BMI 27.4
[2017-05-25] MEDS ORDERED: ONDANSETRON 4 MG/2 ML VIAL ONE (10:22)
[2017-05-25 10:43] LABS: BASO % 0.8 % (0-2.0); EOS % 2.2 % (0-4.5); HEMATOCRIT 41.6 % (32.4-45.2); HEMOGLOBIN 13.7 GM/dl (10.7-15.3); LYMPH % 28.5 % (8-40); MCHC 32.9 g/dl (32.0-36.0); MEAN CELL VOLUME 91.4 fl (80-96); MEAN PLT VOLUME 7.3 fl (7.5-11.1); MONO % 6.4 % (3.8-10.2); NEUT % 62.1 % (42.8-82.8); PLATELET COUNT 365 K/MM3 (134-434); RBC 4.55 M/mm3 (3.60-5.2); RDW 13.6 % (11.6-15.6)
[2017-05-25 11:01] LABS: ALBUMIN 3.7 g/dl (3.5-5.0); ALK PHOS 60 U/L (32-92); ANION GAP 4 (8-16); BLOOD UREA NITROGEN 11 mg/dl (7-18); CALCIUM 8.8 mg/dl (8.4-10.2); CHLORIDE 104 mmol/L (98-107); CO2 27 mmol/L (22-28); GLUCOSE,RANDOM 104 mg/dl (74-106); POTASSIUM 4.4 mmol/L (3.5-5.1); SGOT/AST 20 U/L (10-42); SGPT/ALT 15 U/L (10-40); SODIUM 135 mmol/L (136-145); TOT PROT 6.5 g/dl (6.4-8.3)
[2017-05-25 11:28] LABS: BILIRUBIN,TOTAL < 0.5 mg/dl (0.2-1.0); CREATININE < 0.8 mg/dl (0.6-1.3)
--- NOTE | 2017-05-26 12:53 | EKG ---
Test Reason : Blood Pressure : / mmHG Vent. Rate : 060 BPM Atrial Rate : 060 BPM P-R Int : 156 ms QRS Dur : 098 ms QT Int : 396 ms P-R-T Axes : 049 026 027 degrees QTc Int : 396 ms POOR DATA QUALITY, INTERPRETATION MAY BE ADVERSELY AFFECTED NORMAL SINUS RHYTHM WITH SINUS ARRHYTHMIA NORMAL ECG NO PREVIOUS ECGS AVAILABLE Confirmed by MD JAIRO, PRIYANK ([id number]) on 05/26/2017 12:53:22 PM Referred By: SINGH Confirmed By:PRIYANK GILL MD
== END 2017-05-25 12:23 | disposition home or self-care (01) ==
LOC: FER 09:30
PROC: 3E033GC Introduction of Other Therapeutic Substance into Peripheral Vein, Percutaneous Approach (ICD-10-PCS; principal; 2017-05-25)
PROC: 3E0337Z Introduction of Electrolytic and Water Balance Substance into Peripheral Vein, Percutaneous Approach (ICD-10-PCS; 2017-05-25)
DX: B34.9 Viral infection, unspecified (principal); F17.210 Nicotine dependence, cigarettes, uncomplicated; I10 Essential (primary) hypertension
CPT/HCPCS: 36415; 80053; 84484; 85025; 93005; 99283-25; J7030

== ENCOUNTER 2019-11-20 08:50 | Emergency (ER) | payer OTHER ==
[2019-11-20] MEDS ORDERED: LIDOCAINE 5% TOPICAL PATCH TP ONE (08:53)
[2019-11-20] MEDS ORDERED: KETOROLAC TROMETHAMINE 60 MG/2 ML VIAL IM ONE (08:53)
[2019-11-20] MEDS ORDERED: LIDOCAINE 5% TOPICAL PATCH ONE (09:04)
[2019-11-20] MEDS ORDERED: KETOROLAC TROMETHAMINE 60 MG/2 ML VIAL ONE (09:04)
--- NOTE | 2019-11-20 09:23 | PDOC ---
History of Present Illness - General Chief Complaint: Pain, Acute Stated Complaint: CHEST,SHOULDER BACK PAIN Time Seen by Provider: 11/20/19 08:52 - History of Present Illness Initial Comments: 11/20/19 09:12 63yo female with PMH of HTN, IBS, smoking history on Linzess presents for eval of anterior chest wall pain that radiates around to her back and L shoulder pain. Pt states she tripped and fell earlier last week. States her Right knee gave out causing her to fall. States she landed hitting her anterior chest on a car. Pt states she had pain across her anterior chest and her L breast initially, the l breast has improved, but still has some anterior reproducible chest wall pain. Pt denies substernal cp or sob. pt denies abd pain. States she saw her orthopedist who injected her R knee Maribel (ortho at [facility]) and has b een taking motrin once daily for the pain. Pt states her last motrin was yesterday. Motrin has been helping he chest wall pain and her knee pain. Pt concerned because still with ttp today. Pt works in registration at the hospital. Pshx: L knee sx, c sections all: pcn meds: linzess Past History - Medical History Allergies/Adverse Reactions: Allergies Allergy/AdvReac Type Severity Reaction Status Date / Time Penicillins Allergy Verified 05/28/19 15:29 Home Medications: Ambulatory Orders Linaclotide [Linzess] 290 mcg PO DAILY 06/30/16 Azithromycin [Zithromax 250mg Tablets -] 250 mg PO UTDICT #6 tab 05/28/19 Guaifenesin AC [Robitussin-AC] 1 - 2 tsp PO TID PRN #120 ml MDD 6 05/28/19 Phenylephrine HCl/Prometh HCl [Promethazine Vc Syrup] 1 - 2 tsp PO TID PRN #120 ml 05/28/19 COPD: No GI Disorders: Yes (IBS W/ CONSTIPATION) HTN: Yes - Immunization History Immunization Up to Date: Yes - Psycho-Social/Smoking History Smoking Status: Yes Smoking History: Current every day smoker Have you smoked in the past 12 months: Yes Number of Cigarettes Smoked Daily: 6 Cigars Per Day: 0 'Breaking Loose' booklet given: 03/07/17 Review of Systems - Review of Systems Able to Perform ROS?: Yes Is the patient limited Belgian proficient: No Constitutional: No: Chills, Fever HEENTM: No: Nose Congestion, Throat Pain Respiratory: No: Cough, Shortness of Breath Cardiac (ROS): No: Chest Pain, Irregular Heart Rate, Lightheadedness, Palpitations ABD/GI: No: Diarrhea, Nausea, Vomiting, Abdominal cramping : No: Burning, Dysuria Musculoskeletal: Yes: Back Pain. No: Neck Pain Integumentary: No: Bruising, Change in Color, Rash Neurological: No: Headache, Numbness, Paresthesia All Other Systems: Reviewed and Negative *Physical Exam - Vital Signs 11/20/19 09:31 Selected Entries 11/20/19 08:51 Temperature 98.8 F Pulse Rate 83 Respiratory 18 Rate Blood Pressure 169/87 Blood Pressure 114 Mean O2 Sat by Pulse 99 Oximetry (%) Weight 74.843 kg - Physical Exam General Appearance: Yes: Nourished, Appropriately Dressed. No: Apparent Distress HEENT: positive: EOMI, Normal Voice Neck: positive: Supple. negative: Tender midline Respiratory/Chest: positive: Chest Tender (anterior chest wall ttp to L anterior chest along sternal border - lower border), Lungs Clear, Normal Breath Sounds. negative: Respiratory Distress, Rhonchi, Stridor, Wheezing Cardiovascular: positive: Regular Rhythm, Regular Rate, S1, S2. negative: Edema Gastrointestinal/Abdominal: positive: Soft. negative: Guarding, Rebound, Tenderness Musculoskeletal: positive: Normal Inspection. negative: CVA Tenderness, Vertebral Tenderness Extremity: positive: Normal Capillary Refill, Normal Inspection, Normal Range of Motion, Other (ambulatory with a steady gait). negative: Swelling, Calf Tenderness Integumentary: positive: Normal Color, Dry, Warm. negative: Ecchymosis, Bruising Neurologic: positive: Fully Oriented, Alert, Normal Mood/Affect, Normal Response, Motor Strength 5/5 Heart Score/ECG Review - ECG Intrepretation Comment:: 11/20/19 09:31 sinus at 60, nl axis, nl interval, no acute st/t wave findings ED Treatment Course - RADIOLOGY Radiology Studies Ordered: Category Date Time Status CHEST PA & LAT [RAD] Stat Radiology 11/20/19 08:52 Taken SHOULDER-LEFT [RAD] Stat Radiology 11/20/19 08:52 Taken Medical Decision Making - Medical Decision Making 11/20/19 09:27 a/p: 63yo female with anterior chest wall pain after a trip and fall, landing on a car with her chest -poss rib rx -sent for xrays of anterior chest and shoulder -suspect rib bruising and not broken ribs -will medicate for pain with toradol and lidoderm -pt neuro intact -will monitor and reassess 11/20/19 09:32 cxr clear, no rib fx shoulder xray without acute findings ekg nonacute 11/20/19 09:39 pt feeling better discussed results pt staets she will follow up with her pmd dr. sam chaparro for dc to home Discharge - Discharge Information Problems reviewed: Yes Clinical Impression/Diagnosis: Anterior chest wall pain Condition: Stable Disposition: HOME - Admission No - Follow up/Referral Referrals: Carlos Manuel Trinidad MD [Staff Physician] - - Patient Discharge Instructions Patient Printed Discharge Instructions: DI for Rib Contusion, DI for Sternum Contusion Additional Instructions: Please apply ice to the anterior chest, 20 min on and 20 min off for comfort. Please take tylenol or motrin as needed for pain. Please make a follow up appointment with your PMD for this week. Please return to the ER with any further concerns or complaints. - Post Discharge Activity
[2019-11-20 09:27] VITALS: BP 169/87; PULSE 83; TEMP 98.8; BMI 30.2
--- NOTE | 2019-11-20 12:45 | EKG ---
Test Reason : Blood Pressure : / mmHG Vent. Rate : 060 BPM Atrial Rate : 060 BPM P-R Int : 164 ms QRS Dur : 086 ms QT Int : 404 ms P-R-T Axes : 051 033 031 degrees QTc Int : 404 ms NORMAL SINUS RHYTHM WITH SINUS ARRHYTHMIA NORMAL ECG WHEN COMPARED WITH ECG OF 25-MAY-2017 10:05, NO SIGNIFICANT CHANGE WAS FOUND Confirmed by Robert Storm ([id number]) on 11/20/2019 12:45:34 PM Referred By: MD GARCIA Confirmed By:Robert Storm
[2019-11-20] MEDS ORDERED: LIDOCAINE PATCH REMOVAL MC SCH (22:00)
== END 2019-11-20 09:46 | disposition home or self-care (01) ==
LOC: FER 08:50
PROC: 3E0233Z Introduction of Anti-inflammatory into Muscle, Percutaneous Approach (ICD-10-PCS; principal; 2019-11-20)
DX: R07.89 Other chest pain (principal)
CPT/HCPCS: 71046-TC-FY; 73030-TC-LT-FY; 93005; 99285-25

== ENCOUNTER 2020-01-03 18:42 | Emergency (ER) | payer OTHER ==
--- OUTSIDE RECORDS SUMMARY | 2020-01-03 18:45 | XMS ---
:1955 Author Organization [facility] Support Name Relationship Address Phone [facility] Unavailable [address] [place] [address] [facility]available [address] [place] [address] [facility] Unavailable [address] [address] [facility] [address]available [address] [place] [address] GLADIS ZIEGLER [address] [place] [address] GLADIS ZIEGLER Spouse [address] [place] [address] Re-disclosure Warning The records that you are about to access may contain information from federally- assisted alcohol or drug abuse programs. If such information is present, then the following federally mandated warning applies: This information has been disclosed to you from records protected by federal confidentiality rules (42 CFR part 2). The federal rules prohibit you from making any further disclosure of this information unless further disclosure is expressly permitted by the written consent of the person to whom it pertains or as otherwise permitted by 42 CFR part 2. A general authorization for the release of medical or other information is NOT sufficient for this purpose. The Federal rules restrict any use of the information to criminally investigate or prosecute any alcohol or drug abuse patient.The records that you are about to access may contain highly sensitive health information, the redisclosure of which is protected by Article 27-F of the [place] State Public Health law. If you continue you may haveaccess to information: Regarding HIV / AIDS; Provided by facilities licensed or operated by the [facility] Office of Mental Health; or Provided by the [facility] Office for People With Developmental Disabilities. If such information is present, then the following [facility] mandated warning applies: This information has been disclosed to you from confidential records which are protected by state law. State law prohibits you from making any further disclosure of this information without the specific written consent of the person to whom it pertains, or as otherwise permitted by law. Any unauthorized further disclosure in violation of state law may result in a fine or penitentiary sentence or both. A general authorization for the release of medical or other information is NOT sufficient authorization for further disclosure. Insurance Providers Payer name Policy type Policy ID Covered Covered republican's Policy P vito / Coverage republican ID relationship to Pool Inf ormation type pool [employer] HMO [id number] SP [id number] [employer] (HMO) [id number] [facility] [facility] [facility] [id number] (PPO) [employer] HMO [id number] SP [id number] PPO [id number] SP [id number] Results ID Date Data Source [id number] 06/08/2019 12:00:00 AM EDT [facility] Name Value Range Interpretation Code Description Data Naila rce(s) Supporting Document(s ) 2019-nCoV [facility] RNA XXX MARY ELLEN+probe- Imp This lab was ordered by [facility] a nd reported by [employer]. Procedure
--- NOTE | 2020-01-03 19:04 | TELE ---
HPI Do you have fever,cough or shortness of breath?: No - General Reason For Visit: COVID 19 TEST History Source: Patient Past History - Medical History Allergies/Adverse Reactions: Allergies Allergy/AdvReac Type Severity Reaction Status Date / Time Penicillins Allergy Verified 11/20/19 10:20 Home Medications: Ambulatory Orders Linaclotide [Linzess] 290 mcg PO DAILY 06/30/16 Azithromycin [Zithromax 250mg Tablets -] 250 mg PO UTDICT #6 tab 05/28/19 Guaifenesin AC [Robitussin-AC] 1 - 2 tsp PO TID PRN #120 ml MDD 6 05/28/19 Phenylephrine HCl/Prometh HCl [Promethazine Vc Syrup] 1 - 2 tsp PO TID PRN #120 ml 05/28/19 COPD: No GI Disorders: Yes (IBS W/ CONSTIPATION) HTN: Yes - Immunization History Immunization Up to Date: Yes - Psycho-Social/Smoking History Smoking Status: Yes Smoking History: Current every day smoker Have you smoked in the past 12 months: Yes Number of Cigarettes Smoked Daily: 6 Cigars Per Day: 0 'Breaking Loose' booklet given: 03/07/17 Review of Systems - Review of Systems Constitutional: No: Fever Respiratory: No: Cough *Physical Exam - Physical Exam Respiratory/Chest: negative: Respiratory Distress Discharge Diagnosis at time of Disposition: Encounter for laboratory testing for COVID-19 virus - Referrals Follow-up Referral(s): Carlos Manuel Trinidad MD [Primary Care Provider] - - Patient Instructions - Discharge Disposition: HOME Condition at time of Disposition: Stable
== END 2020-01-03 19:04 | disposition home or self-care (01) ==
LOC: JVIRT 18:42
DX: Z03.818 Encounter for observation for suspected exposure to other biological agents ruled out (principal)
CPT/HCPCS: C9803; Q3014-GT; U0003

== ENCOUNTER 2020-02-04 20:17 | Emergency (ER) | payer OTHER | END 2020-02-04 20:36 | disposition home or self-care (01) | LOC: JVIRT 20:17 | DX: R05 Cough (principal); Z11.59 Encounter for screening for other viral diseases | CPT/HCPCS: C9803; Q3014-GT; U0003 ==

== ENCOUNTER 2020-12-29 07:51 | Emergency (ER) | payer OTHER ==
[2020-12-29] MEDS ORDERED: ALBUTEROL SO4 2.5/IPRATROPIUM 0.5 INH SOL 3 ML VIAL.NEB. NEB ONE ×2 (07:55→07:57)
[2020-12-29 08:13] VITALS: BP 155/94; PULSE 94; TEMP 100.4; BMI 24.3
== END 2020-12-29 08:59 | disposition home or self-care (01) ==
LOC: FER 07:51
PROC: 3E0F7GC Introduction of Other Therapeutic Substance into Respiratory Tract, Via Natural or Artificial Opening (ICD-10-PCS; principal; 2020-12-29)
DX: J20.9 Acute bronchitis, unspecified (principal); Z11.52 Encounter for screening for COVID-19
CPT/HCPCS: 71046-TC-FY; 87804; 99284-25; C9803; U0003; U0005

== ENCOUNTER 2021-06-12 09:46 | Day surgery (SDC) | payer OTHER ==
[2021-06-10 15:14] VITALS: BMI 26.4
[2021-06-12 12:26] VITALS: BP 140/68; PULSE 61; TEMP 98
== END 2021-06-12 12:47 | disposition home or self-care (01) ==
LOC: FASU-ENDO 09:46
PROVIDERS: ATTEND Internal Medicine Gastroenterology
PROC: 0DBN8ZX Excision of Sigmoid Colon, Via Natural or Artificial Opening Endoscopic, Diagnostic (ICD-10-PCS; principal; 2021-06-12 11:35)
DX: Z12.11 Encounter for screening for malignant neoplasm of colon (principal); D12.7 Benign neoplasm of rectosigmoid junction; K64.1 Second degree hemorrhoids; K57.30 Diverticulosis of large intestine without perforation or abscess without bleeding
CPT/HCPCS: 88305-TC